=== PATIENT | male | born 2000 | race Caucasian/White ===

== ENCOUNTER 2022-11-23 14:39 | Emergency (ER) | payer MEDICAID, OTHER ==
[~2022-11-23] VITALS: Ht 177.8 cm; Wt 136.1 kg
[2022-11-23 14:40] VITALS: BP_SYST 170
--- NOTE | 2022-11-23 14:40 | NUR ---
BROUGHT BACK TO BED #8 AND TRIAGED. REPORT GIVEN TO BROCK
--- NOTE | 2022-11-23 14:45 | NUR ---
Pt brought by partner, A&Ox4, pt presents to ER with redness, white patches , pain on throat, pt afebrile, skin pink and warm, respirations even and unlabored, cap refill <3.
--- NOTE | 2022-11-23 14:50 | NUR ---
Dr Horner evaluating patient at bedside
[2022-11-23] MEDS ORDERED: PENICILLIN G BENZATHINE 1.2 MMU/2 ML SYR IM ONE (15:00)
[2022-11-23] MEDS ORDERED: KETOROLAC TROMETHAMINE 60 MG/2 ML VIAL IM ONE (15:00)
[2022-11-23] MEDS ORDERED: DEXAMETHASONE SOD PHOSPHATE 10 MG/ML VIAL IM ONE (15:00)
[2022-11-23] MEDS ORDERED: AUG875 PO (15:20)
[2022-11-23] MEDS ORDERED: NAPH15DR52 EACH EYE (15:20)
[2022-11-23] MEDS ORDERED: IBUP-1971 PO (15:20)
--- NOTE | 2022-11-23 15:57 | NUR ---
Patient given written and verbal discharge instructions and verbalizes understanding. ER MD discussed with patient the results and treatment provided. Patient in stable condition. ID arm band removed. Rx of AUGMENTIN, IBUPROFEN, VASOCON OPTH given. Patient educated on pain management and to follow up with PMD. Pain Scale 2/10. Opportunity for questions provided and answered. Medication side effect fact sheet provided.
== END 2022-11-23 15:57 | disposition home or self-care (01) ==
LOC: SED 14:39
DX: J03.90 Acute tonsillitis, unspecified (principal); H57.89 Other specified disorders of eye and adnexa; Z79.899 Other long term (current) drug therapy
CPT/HCPCS: 99284; 96372; J0561; J1100; J1885

== ENCOUNTER 2023-01-26 02:22 | Emergency (ER) | payer MEDICAID ==
[~2023-01-26 02:22] MED LIST: AUG875 PO; IBUP-1971 PO; NAPH15DR52 EACH EYE
[2023-01-26 02:43] VITALS: BP_SYST 140
[2023-01-26] MEDS ORDERED: IPRATROPIUM/ALBUTEROL SULFATE 3 ML AMPUL.NEB (DUONEB) INH ONE (03:15)
[2023-01-26] MEDS ORDERED: predniSONE 20 MG TABLET PO ONE (03:15)
--- NOTE | 2023-01-26 03:48 | NUR ---
Patient arrived to ED 8 for c/o shortness of breath, started out as cold yesterday when he woke up in morning. Patient said he was super congested. He had coughs. He had wheezes. Patient has PMH asthma. Denies other PMH. Patient denies taking meds prior to arrival. Dr. Sood at bedside to MSE patient. Will continue to monitor.
[2023-01-26] MEDS ORDERED: ALBMDI INH (04:07)
[2023-01-26] MEDS ORDERED: GUAI-723 PO (04:07)
[2023-01-26] MEDS ORDERED: PSEU120T57 PO (04:07)
[2023-01-26] MEDS ORDERED: PRED20TA PO (04:07)
[2023-01-26] MEDS ORDERED: OSEL75CA PO (04:27)
[2023-01-26] MEDS ORDERED: OSELTAMIVIR PHOSPHATE 75 MG CAPSULE PO ONE (04:30)
[2023-01-26 05:04] VITALS: BP_SYST 124
== END 2023-01-26 05:01 | disposition home or self-care (01) ==
LOC: SED 02:22
DX: J10.1 Influenza due to other identified influenza virus with other respiratory manifestations (principal); J45.901 Unspecified asthma with (acute) exacerbation; R05.9 Cough, unspecified; R09.81 Nasal congestion; R06.02 Shortness of breath; F17.200 Nicotine dependence, unspecified, uncomplicated; F12.90 Cannabis use, unspecified, uncomplicated; Z79.899 Other long term (current) drug therapy; Z20.822 Contact with and (suspected) exposure to COVID-19
CPT/HCPCS: 36415; 71045; 99284; 87804 ×2; 87426; G9035; J7512

== ENCOUNTER 2023-06-09 06:16 | Emergency (ER) | payer SELFPAY ==
[~2023-06-09] VITALS: Ht 177.8 cm; Wt 140.6 kg
[~2023-06-09 06:16] MED LIST changes: +ALBMDI INH; +GUAI-723 PO; +OSEL75CA PO; +PRED20TA PO; +PSEU120T57 PO
[2023-06-09 06:21] VITALS: BP_SYST 125; PULSE 92; RESP 20; TEMP 97.8; O2SAT 98
[2023-06-09] MEDS ORDERED: IBUP-1971 PO (09:29)
[2023-06-09] MEDS ORDERED: SOM350 PO (09:29)
[2023-06-09 09:42] VITALS: BP_SYST 135; PULSE 76; RESP 18; TEMP 98.2; O2SAT 98
== END 2023-06-09 09:39 | disposition home or self-care (01) ==
LOC: SED 06:16
DX: S13.4XXA Sprain of ligaments of cervical spine, initial encounter (principal); S33.5XXA Sprain of ligaments of lumbar spine, initial encounter; S00.81XA Abrasion of other part of head, initial encounter; Z79.899 Other long term (current) drug therapy; V89.2XXA Person injured in unspecified motor-vehicle accident, traffic, initial encounter; Y93.89 Activity, other specified; Y92.89 Other specified places as the place of occurrence of the external cause; Y99.8 Other external cause status
CPT/HCPCS: 70450-TC; 72100-TC; 72125-TC; 76376; 99284